=== PATIENT | male | born 1995 | race Caucasian/White ===

== ENCOUNTER 2020-01-09 07:35 | Day surgery (SDC) | payer MEDICAID, SELFPAY ==
[2020-01-09] VITALS (18 sets, daily range): BP systolic 88–146; BP diastolic 48–89; PULSE 55–90; RESP 16–20; TEMP 36.4–36.8; O2SAT 98–100; BMI 19.5
--- NOTE | 2020-01-09 07:57 | XR_ITS ---
PROCEDURE: XR HAND RT MIN 3V CLINICAL INDICATION: fall, pain, swelling COMPARISON: No exams were available for comparison FINDINGS: There is a transverse fracture with radial palmar angulation within the mid diaphysis of the 5th metacarpal with overlying soft tissue edema. IMPRESSION: Fifth metacarpal fracture displacement Dictated by: Fazal Rodriguez 01/09/2020 11:09 Electronically signed by Fazal Rodriguez in [facility] 01/09/2020 11:09
--- NOTE | 2020-01-09 07:57 | PC.NURSE ---
rad notified of xray order-spoke with sherry
--- NOTE | 2020-01-09 08:05 | HMH.EDGENADL ---
ED Disposition Clinical Impression: Fracture of fifth metacarpal bone of right hand Qualifiers: Encounter type: initial encounter Fracture type: open Metacarpal location: shaft Fracture alignment: displaced Qualified Code(s): S62.326B - Displaced fracture of shaft of fifth metacarpal bone, right hand, initial encounter for open fracture Disposition: Still a Patient Condition on Discharge: Good Referrals: Provider,Referral, MD [Primary Care Provider] - - Critical Care Critical Care Time: No Attestation: On 01/09/20, the high probability of a clinically significant, sudden or life threatening deterioration of the following system(s) required my full and direct attention, intervention and personal management. The time I documented below is in addition to time spent performing reported procedures but includes the following listed in this critical care notation. Medical Decision Making - Len Inquiry Pt receiving controlled substance: Yes Len was queried for this patient: Yes Reference #:: [id number] Risks and benefits of using a controlled substance: were not discussed with pt by me Comment: 0 rxs. Vital Signs: 01/09/20 07:40 01/09/20 09:10 01/09/20 09:36 Temperature 97.9 F Temperature Source Oral Pulse Rate [Left Radial] 76 70 58 L Respiratory Rate 18 20 Blood Pressure [Left Arm] 140/78 106/60 L 101/52 L Blood Pressure Mean [Left Arm] 98 75 68 Blood Pressure Source [Left Arm] Automatic Cuff Automatic Cuff Blood Pressure Position [Left Arm] Sitting Sitting 02 Sat by Pulse Oximetry 100 98 98 Oxygen Delivery Method Room Air Room Air Orders (Tests/Meds): ED MEDICATIONS Generic Name Dose Route Start Last Admin Trade Name Freq PRN Reason Stop Dose Admin Miscellaneous 1 each 01/09/20 09:30 Gentamicin Consult Request * 02/08/20 09:29 CONSULT PHARMACY [facility] Discontinued Medications Generic Name Dose Route Start Last Admin Trade Name Freq PRN Reason Stop Dose Admin Cefazolin Sodium 2 gm/ Sodium 50 mls @ 100 mls/hr 01/09/20 08:29 01/09/20 08:46 Chloride IV 01/09/20 08:58 100 mls/hr ONCE ONE Administration Protocol Morphine Sulfate 4 mg 01/09/20 08:28 01/09/20 08:46 Morphine 4mg/Ml Syringe IV 01/09/20 08:29 4 mg ONCE ONE Administration Ondansetron HCl 4 mg 01/09/20 08:28 01/09/20 08:46 Zofran 4mg/2ml Vial IV 01/09/20 08:29 4 mg ONCE ONE Administration ORDERS Category Date Time Status Ortho Consult (on-call) [Consult to On-Call Orthopedic Cons 01/09/20 08:10 Ordered Surgeon] [CONS] Routine XR hand RT min 3V Stat Exams 01/09/20 07:57 Taken - Radiology Data #1 Image(s): Hand Image Reviewed: Yes I reviewed the patient's radiology image Displaced fracture midshaft fifth metacarpal metaphysis - Physician Consults Physician Consulted: Avery Time: 08:57 Reason -: Orthopedic Eval/Care Comment/Response: Keep patient n.p.o. He will see the patient when he arrives at the hospital. Anticipates likely surgery today at around lunchtime. Seen by Dr. Varela. He requests gentamicin also. General Adult HPI - General Chief complaint: Extremity Injury, Upper Stated complaint: AO [id number] Right hand injury Time Seen by Provider: 01/09/20 08:06 Mode of Arrival: Ambulatory Limitations: No Limitations Description of Symptoms (Recalled from ER Triage Doc. by RN): Pt c/o R hand pain/swelling. Pt reports he was running up a set of stairs slipped at fell landing on his hand. - History of Present Illness HPI narrative: States he slipped on wet steps this morning at about 6:30 AM injuring his right hand. Pain and swelling over 5th metacarpal area. Has an open wound in same location. Last oral intake was last night. States he had a prior open fracture of the same hand in the same place a year ago, treated by Dr. Vaughan in [place]. - Related Data Home Medications Medication Instructions Recorded Confirmed No Known Home Me
--- NOTE | 2020-01-09 08:15 | PC.NURSE ---
dr soriano paged
--- NOTE | 2020-01-09 08:26 | PC.NURSE ---
Called Dr Varela office , staff to text him.
--- NOTE | 2020-01-09 08:41 | PC.NURSE ---
Dr Lynn speaking with Dr Varela
--- NOTE | 2020-01-09 09:22 | PC.NURSE ---
Dr Varela at bedside
--- NOTE | 2020-01-09 09:37 | PC.NURSE ---
Pt R hand cleaned with Betadine, dressed with non-stick dressing, 4x4 and kerlix wrap per request of Dr. Varela. Dr. Varela stated he will hopefully take pt to the OR around lunch time, states he is going to go up and check the schedule. States if the OR is not available at that time he will take pt to surgery in the early afternoon when he is finished with his clinic pts. Asked that we prepare consent for a R hand ORIF of the 5th metacarpal with debridement.
--- NOTE | 2020-01-09 09:43 | PC.NURSE ---
Karine from Dr. Varela's office called stating pt is getting scheduled for surgery at 2:30 pm
--- NOTE | 2020-01-09 09:46 | PC.NURSE ---
contacted pharmacy for Gentamicin dosing-spoke with Boo, stated he will mix medication and bring it down ER MD states Dr. Varela stated to go ahead and give Gentamicin now its not a pre-op antibiotic
--- NOTE | 2020-01-09 09:48 | PC.NURSE ---
Karine from Dr. Varela's office called requesting IGG/IGM be ordered on pt per Dr. Varela request.
--- NOTE | 2020-01-09 09:59 | HMH.ORTHOCON ---
*Admission Date: 01/09/20 *Reason for consult:: Grade 1 open fracture shaft of fifth metacarpal, right hand *History of present illness: Patient is a 24-year-old srsdy-llrl-bjxdtweb male seen in the ER today for orthopedic consultation regarding his right hand injury. He states that he slipped on wet steps this morning at about 6:30 AM injuring his right hand. He reports immediate pain and swelling over 5th metacarpal area. He also reports that he had an open wound over the dorsum of the hand which started bleeding. He presented to the ER where x-rays showed a displaced fifth metacarpal shaft fracture. No history of any other injuries. No history of any distal tingling or numbness. He says he is otherwise healthy and has no medical problems. He is a chronic smoker. He is not on any long-term medication. He reports that he is up-to-date with tetanus vaccination. Last oral intake was last night around 8 PM. Patient states he had a prior open fracture of the same hand in the same place a year ago, treated by Dr. Vaughan in [place]. Review of Systems - Review of Systems Review of systems:: pertinent systems reviewed and negative unless documented below - Constitutional Denies body ache(s), Denies chills, Denies fever(s) - Eyes Denies change in vision - ENT Denies abnormal hearing, Denies bleeding gums - *Cardiovascular Denies chest pain, Denies shortness of breath - *Respiratory Denies chest congestion, Denies cough, Denies shortness of breath - *Gastrointestinal Denies abdominal pain, Denies change in bowel habits, Denies constipation - *Genitourinary Denies difficulty urinating - *Musculoskeletal Reports limited joint movement, Denies abnormal walking - *Neurologic Denies numbness, Denies weakness [facility] History I have reviewed the patient's past medical history: Yes Medical History: Denies:: Diabetes Mellitus Type 1, Diabetes Mellitus Type 2 *Have you ever received a pneumonia vaccine?: No *Have you received a flu vaccine this season?: No - *Social History Smoking Status: Current every day smoker Tobacco Type: cigarettes # Packs/Day (cigarettes): 1 Alcohol Intake: never *Occupational Status:: other *Travel in the last 8 weeks: None Family Hx:: Non-contributory Meds Home Medications Medication Instructions Recorded Confirmed Type hydrocodone 5 mg-acetaminophen 325 1 tab PO Q4-6H PRN #30 tab 01/09/20 Rx mg tablet sulfamethoxazole 800 1 tab PO BID #14 tab 01/09/20 Rx mg-trimethoprim 160 mg tablet Allergies Allergy/AdvReac Type Severity Reaction Status Date / Time No Known Allergies Allergy Unverified 01/09/20 09:49 Exam Vital signs and Labs for Last 24 Hours: Temp Pulse Resp BP Pulse Ox 97.9 F 58 L 20 101/52 L 98 01/09/20 07:40 01/09/20 09:36 01/09/20 09:10 01/09/20 09:36 01/09/20 09:36 I & O for Last 24 hours: Intake & Output 01/06/20 01/07/20 01/08/20 01/09/20 11:59 11:59 11:59 11:59 Weight 140 lb - Constitutional no acute distress, average body habitus, cooperative - *Routine HEENT Exam Head: Present: normocephalic, atraumatic Eye: Present: EOMI ENT: Present: mucous membranes moist - *Routine Neck Exam Present: supple, full ROM, trachea midline. Absent: lymphadenopathy - *Routine Respiratory Exam Present: CTA bilaterally. Absent: respiratory distress - *Routine Cardiovascular Exam Present: RRR, Normal S1, Normal S2 - *Routine Extremities Exam Comments: Right upper extremity/hand: There is small puncture wound measuring about 2-3 millimeters over the dorsum of the fifth metacarpal shaft. There is a small amount of bleeding from the wound. No protruding bone, no foreign bodies or obvious contamination evident. There is moderate swelling and ecchymosis over the dorsum of the hand He is tender over the dorsum of the hand with more severe tenderness over fifth metacarpal shaft The knuckle of the fifth finger is less prominen
[2020-01-09 10:02] LABS: Basophils % 0.3 % (0.1-2.0); Chloride 104 mmol/L (98-107); Eosinophils # 0.2 K/mm3 (0.0-0.4); Eosinophils % 2.4 % (0.1-12.0); Hematocrit 43.1 % (42.0-52.0); Hemoglobin 14.9 g/dL (14.1-18.0); Lymphocytes # 1.5 K/mm3 (0.7-4.5); Lymphocytes % 18.5 % (10-50); Mean Corpuscular HGB Conc 34.5 g/dL (31.8-35.4); Mean Corpuscular Hemoglobin 32.5 pg (27.0-31.2); Mean Corpuscular Volume 94.2 fl (80-94); Mean Platelet Volume 8.5 fl (7.4-10.4); Monocytes # 0.5 K/mm3 (0.1-1.0); Monocytes % 6.8 % (1.7-9.3); Neutrophils # 5.7 K/mm3 (1.8-7.8); Platelet Count 192 K/mm3 (142-424); Red Blood Count 4.57 M/mm3 (4.60-6.20); Red Cell Distribution Width 13.6 % (11.5-17.5); Sodium 141 mmol/L (136-145); White Blood Count 7.9 K/mm3 (4.8-10.8)
[2020-01-09 10:05] LABS: Alanine Aminotransferase 19 U/L (12-78); Albumin/Globulin Ratio 2.1 (1.1-1.8); Alkaline Phosphatase 44 U/L (38-126); Aspartate Amino Transferase 33 U/L (17-59); Bilirubin,Total 0.6 mg/dl (0.2-1.3); Blood Urea Nitrogen 14 mg/dl (9-20); Calcium 9.4 mg/dl (8.4-10.2); Carbon Dioxide 32 mmol/L (22.0-30.0); Creatinine Clearance Estimated 126 mL/min (50-200); Estimated Glomerular Filt Rate 117 ml/min (>60); GFR (African American) 141 ML/MIN (>60); Globulin 2.4 g/dL (1.3-3.2); Glucose 102 mg/dl (74-100); Total Protein,Serum 7.4 g/dl (6.3-8.2)
[2020-01-09 10:26] LABS: Coronavirus 19 IgG Antibody Negative (Negative); Coronavirus 19 IgM Antibody Negative (Negative)
--- NOTE | 2020-01-09 11:02 | PC.NURSE ---
nicotine patch to L shoulder
--- NOTE | 2020-01-09 12:32 | PC.NURSE ---
Pt resting at this time and has o2 probe off of his finger. Will get sats here shortly.
--- NOTE | 2020-01-09 14:23 | XR_ITS ---
Intraoperative radiographs of the right hand Multiple radiographs are remarkable for a plate screws traversing a reduced fracture of the mid diaphysis of the 5th metacarpal Dictated by: Fazal Rodriguez 01/10/2020 09:33 Electronically signed by Fazal Rodriguez in [facility] 01/10/2020 09:33
--- NOTE | 2020-01-09 14:27 | PC.NURSE ---
Pt to surgery at this time
--- NOTE | 2020-01-09 16:26 | HMH.ANESCL ---
[facility] Anesthesia Checklist - Patient Identification Patient Identification: Arm Band, Verbal (Name & ) - Structural Data Admitted From: Home Planned Operative Procedure/s: orif right fith digit Consent for Planned Operative Procedure(s) Verified: Yes Verified Documents: History and Physical - NPO Status Verified Time NPO: 00:00 - Additional verifications Patient : No Anesthesia Reactions: No Hx Blood Transfusions: No Blood Transfusion Reaction: No Cephalosporin Allergy: No Previous Colonoscopy: No - Cardiovascular Assessment Heart Sounds: S1 & S2 Pulse Strength: Baseline Pulse Rhythm: Irregular Peripheral Edema: No - Airway Assessment C-Spine Mobility Assessed: Yes TMJ Mobility Assessed: Yes Dentition: Good Dentition - Neurological Assessment Level of Consciousness: Awake, Alert, Appropriate Hx Seizures: No Numbness or tingling in extremities: No - Anesthesia Plan Anesthesia Risk discussed: Yes Anesthesia Plan: Verified ASA Class: I Anesthesia Type: General w/block [facility] History I have reviewed the patient's past medical history: Yes Medical History: Denies:: Diabetes Mellitus Type 1, Diabetes Mellitus Type 2, Seizures *Have you ever received a pneumonia vaccine?: No *Have you received a flu vaccine this season?: No Other Medical History: Denies: Blood Transfusion Reaction Anesthesia experience/problems:: none - *Social History Smoking Status: Current every day smoker Tobacco Type: cigarettes # Packs/Day (cigarettes): 1 Alcohol Intake: never Substance Use Type: other *Occupational Status:: other *Travel in the last 8 weeks: None Family Hx:: Other
--- NOTE | 2020-01-09 19:57 | P.PN_ITS ---
[facility] Anesthesia Record Part I Intake, IV Amount: 1,000 Estimated blood loss (mL): 10 Urine output (mL): 0 Blood Products used (#): none Blood Pressure: 136/62 SaO2: 99 Pulse Rate: 79 Respiratory Rate: 18 Temperature: 97.5 F Patient is:: Drowsy, Stable Stable to PACU at:: 19:52
--- NOTE | 2020-01-09 20:10 | HMH.OPNOTE ---
Date of procedure: 01/09/20 Pre-op Diagnosis:: Grade 1 open, displaced fracture shaft of fifth metacarpal, right hand Post-op Diagnosis:: Same Procedure performed:: 1. Wound debridement/washout, right hand 2. Open reduction and internal fixation fracture shaft fifth metacarpal, right hand Surgeon:: Lobito Varela MD Roguer(s):: Brittni Abraham HAND TRUCKER:: Misael Rogers Anesthesia: regional (Supraclavicular nerve block), LMA Estimated blood loss (mL): 2 Clinical Note:: Patient is a 24-year-old mcaam-uxcx-mvzsariq male who sustained a grade 1 open fracture shaft of right fifth metacarpal of the he slipped on wet steps this morning at about 6:30 AM injuring his right hand. Following evaluation in the ER, he received IV antibiotics and sterile dressing to the wound. Radiologically the fifth metacarpal shaft fracture is displaced. He has an open wound measuring about 2 to 3 mm over the dorsum of the hand at the fracture site. There is active oozing from the wound. No evidence of any foreign body or contamination is evident. No history of any distal tingling or numbness. He says he is otherwise healthy and has no medical problems. He is a chronic smoker. He is not on any long-term medication. He reports that he is up-to-date with tetanus vaccination. Last oral intake was last night around 8 PM. Patient states he had a prior open fracture of the same hand in the same place a year ago, treated by Dr. Vaughan in [place]. Following a detailed discussion about the management options including both nonsurgical and surgical with the patient opted for wound debridement, open reduction and internal fixation of the fifth metacarpal shaft fracture. Please refer to my office note for full details. Operative findings:: A small superficial wound measuring about 2 mm over the dorsum of the right hand at the fifth metacarpal shaft fracture site. The wound did not appear to be communicating with the fracture site. No evidence of any foreign body or contamination noted. A displaced and somewhat comminuted fifth metacarpal shaft fracture of RIGHT hand was seen as noted on the preoperative x-rays. The previous fracture appears to be malunited with some irregularity of the distal fragment. The fracture is well reduced and internally fixed in a stable fashion with plate and screws. Bone quality is good. Operative note:: Prior to the surgery the patient was met in the preoperative holding area and positively identified. A physical examination was performed and documented. The operative site was marked and initialed by me. The consent form was reviewed and signed. I have again discussed about the procedure, risks and benefits and alternatives. Specifically I have discussed about risk of higher complications including infection given the open wound. The complications discussed include but are not limited to infection, bleeding, injury to nerves and blood vessels, tendon injury and adhesions, nonunion, mal-union, delayed union, finger stiffness, complex regional pain syndrome, hardware failure, incomplete functional recovery, persistent pain, likely need for further surgery, complications of anesthesia including heart attack, stroke and even . We discussed about the likely failure of the surgery to accomplish the desired goals, decreased use of the hand, and loss of use of the hand, loss of the finger or hand. We also discussed about the possible need for further surgery for removal of the hardware if there are any problems. We have discussed nonsurgical alternatives as well but not recommended. The patient asked appropriate questions and all have been answered by me. I believe the patient is fully informed as to the goals of surgery, the potential risks and benefits. He wished to proceed with the surgery. Patient understood the risks, agreed to proceed with surgery, signed the consent form and no guarantees or assurances were given or implied. The patient was brou
--- NOTE | 2020-01-09 21:19 | HMH.ANESII ---
[facility] Anesthesia Record Part II Discharge Time: 20:22 Destination: Surgical Day Care (OP Surgery) PACU nurse assessment reviewed?: Yes Patient Condition:: Good Anesthesia Complications:: None Swallowing reflex intact?: Yes Cyanosis?: No Blood Pressure: 140/85 Pulse Rate: 74 Temperature: 98.0 F Mental Status: Alert & Oriented Pain level:: 0 Nausea and/or vomitting:: None Intake, IV Amount: 20
== END 2020-01-09 20:53 | disposition home or self-care (01) ==
LOC: ER 10:07 → SDC 14:38 → OR 15:34 → SDC 15:38
PROVIDERS: Emergency Medicine; Emergency Provider Emergency Medicine; Visit Provider Orthopaedic Surgery
PROC: (CPT 26615; principal; 2020-01-09 14:30)
DX: S62.326B Displaced fracture of shaft of fifth metacarpal bone, right hand, initial encounter for open fracture (principal); W10.8XXA Fall (on) (from) other stairs and steps, initial encounter; Y92.019 Unspecified place in single-family (private) house as the place of occurrence of the external cause
CPT/HCPCS: 26615; 73120; 73130; 76000; 80053; 85025; 86328; 96365; 96367; 96374; 96375; 96376; 99285; C1713; C1776; J0670; J2405